=== PATIENT | female | born 1950 | race Caucasian/White ===

== ENCOUNTER 2023-05-31 19:16 | Outpatient (CLI) | payer MEDICARE, OTHER | END 2023-05-31 19:17 | disposition critical access hospital (66) | LOC: EMS 19:16 | DX: R07.89 Other chest pain (principal); R20.2 Paresthesia of skin; R06.02 Shortness of breath; R11.0 Nausea | CPT/HCPCS: A0425; A0429 ==

== ENCOUNTER 2023-05-31 19:47 | Emergency (ER) | payer MEDICARE, OTHER ==
--- NOTE | 2023-05-31 20:07 | ED Physician Documentation ---
PD HPI CHEST PAIN - Stated complaint Stated Complaint: CHEST PX/SOA - Chief complaint Chief Complaint: Cardiac - History obtained from History obtained from: Patient - Additional information Additional information: BIBA. HPI from patient. At approximately 6:30 PM ofelia, while patient was driving her car, she experienced sudden onset of left anterior chest discomfort. She describes a sensation as "felt like my heart stopped" (per patient), with the next beat she felt as particularly strong; she did not have subsequent palpitations or skipped-beat/pause sensations. Over the ensuing 30 to 60 seconds, she had nausea and dyspnea. 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 She became increasingly concerned of the potential seriousness of the cause of her symptoms to the point of pulling over and calling 911. Denies h/o similar symptoms. No known cardiac medical history. Has never had a stress test. By the time of this H+P, she is asymptomatic. She notes that she had a typical day today including exercise (swimming) without any symptoms or difficulty. Review of Systems Constitutional: reports: Reviewed and negative Cardiac: reports: Other (not chest pain nor palpitations per se). denies: Pedal edema, Calf pain Respiratory: reports: Dyspnea (resolved) GI: reports: Nausea. denies: Abdominal Pain, Vomiting PD PAST MEDICAL HISTORY - Past Medical History Past Medical History: No - Past Surgical History Past Surgical History: Yes General: Appendectomy Ortho: Hip replacement /[employer]: Mastectomy - Present Medications Home Medications: Ambulatory Orders Medication Instructions Recorded Confirmed No Known Home Medications 05/31/23 05/31/23 - Allergies Allergies/Adverse Reactions: Allergies Allergy/AdvReac Type Severity Reaction Status Date / Time clindamycin Allergy Unknown Verified 05/31/23 20:00 - Social History Does the pt smoke?: No Smoking Status: Never smoker PD ED PE NORMAL - Vitals Vital signs reviewed: Yes - General General: Alert and oriented X 3, No acute distress, Well developed/nourished - Cardiac Cardiac: RRR - Respiratory Respiratory: No respiratory distress, Clear bilaterally - Abdomen Abdomen: Soft, Non tender - Extremities Extremities: No edema PD ED PE EXPANDED - Cardiac Cardiac: Murmur Present (1/6 SOCO very focal to right 2nd ICS immediately adjacent to right sternal border) Results - Vitals Vitals: Oxygen O2 Source Room air - EKG (time done) No standard instances EKG releavant findings:: EKG personally interpreted by author of this note. Relevant findings are: Rate: Rate (enter#) (69) Rhythm: NSR [place]: Normal Intervals: Normal [place] QRS: LVH Ischemia: Normal ST segments Other comments: Other comments (RSR' V2) - Labs Labs: Laboratory Tests 05/31/23 05/31/23 20:12 20:12 WBC 7.5 RBC 4.25 Hgb 12.9 Hct 38.4 MCV 90.4 MCH 30.4 MCHC 33.6 RDW 13.5 Plt Count 226 MPV 10.1 Neut # (Auto) 3.4 Lymph # (Auto) 2.9 Woods # (Auto) 0.7 Eos # (Auto) 0.3 Baso # (Auto) 0.1 Absolute Nucleated RBC 0.00 Nucleated RBC % 0.0 Sodium 136 Potassium 3.7 Chloride 103 Carbon Dioxide 28 Anion Gap 5.0 L BUN 15 Creatinine 0.7 Estimated GFR (MDRD) 82 L Glucose 119 H Calcium 9.9 Total Bilirubin 0.5 AST 18 ALT 17 Alkaline Phosphatase 88 Troponin I High Sens 6.2 Total Protein 6.2 L Albumin 4.1 Globulin 2.1 Albumin/Globulin Ratio 2.0 Lipase 24 - Rads (name of study) chest xray Relevant Findings:: Prelim report reviewed, See rad report PD Medical Decision Making - ED course Complexity details: reviewed results, re-evaluated patient, considered differential, d/w patient ED course: No concerning nor diagnostic findings on tonight's tests, including blood tests (including hs-cTn), EKG, and CXR. She remained asymptomatic during ED stay. On reevaluation, results d/w patient. Etiology of her symptoms is not apparent at this time. Return precautions discussed, advised to seek follow up with PCP , armand xt available appointment. We also discussed my finding of subtle hear murmur on exam; she says she has never been told of a heart murmur before. Might benefit from outpatient echo if heart murmur is detected on follow-up exam. Departure - Departure Disposition: 01 Home, Self Care Clinical Impression: Chest pain Qualifiers: Chest pain type: unspecified Qualified Code(s): R07.9 - Chest pain, unspecified Condition: Good Instructions: ED Chest Pain Atypical Unkn Cause Follow-Up: Viridiana Looney MD [Primary Care Provider] - Comments: There were no concerning nor diagnostic findings on tonight's tests, including the blood work, chest x-ray, and EKG. The cause of your symptoms is not apparent at this time. As we discussed, you were having occasional PVCs (premature ventricular contractions) on the monitor while you were in the emergency department, but, notably, you indicated to me that you were not having any symptoms from these PVCs. Contact your primary care provider's office when they next open to arrange for next available appointment for reevaluation. Forms: PCP List Discharge Date/Time: 05/31/23 22:16
--- NOTE | 2023-05-31 20:18 | XRAY Report ---
PROCEDURE: Chest 1 View X-Ray INDICATIONS: Chest Pain TECHNIQUE: One view of the chest was acquired. COMPARISON: None. FINDINGS: Surgical changes and devices: Left axillary clips are seen. At least one apparent right axillary cli ps can also be seen. Lungs and pleura: No pleural effusions or pneumothorax. Lungs are clear. Mediastinum: The aorta is prominent and tortuous. The cardiac contours are within normal limits. Bones and chest wall: No suspicious bony lesions. Age-appropriate degenerative changes are seen. O verlying soft tissues appear unremarkable. IMPRESSION: No acute cardiopulmonary process. Postoperative and degenerative changes are seen. Reviewed by: Herb Fields MD on 05/31/2023 7:17 PM KARINA Approved by: Herb Fields MD on 05/31/2023 7:17 PM KARINA Station ID: [id number]
[2023-05-31 20:21] LABS: BASOPHILS # (AUTO) 0.1 10^3/uL (0.0-0.1); BASOPHILS % (AUTO) 1.5 %; EOSINOPHILS # (AUTO) 0.3 10^3/uL (0.0-0.7); EOSINOPHILS % (AUTO) 4.5 %; HCT - HEMATOCRIT 38.4 % (37.0-47.0); HGB - HEMOGLOBIN 12.9 g/dL (12.0-16.0); LYMPHOCYTES # (AUTO) 2.9 10^3/uL (1.5-3.5); LYMPHOCYTES % (AUTO) 38.8 %; MEAN CORPUSCULAR HEMOGLOBIN 30.4 pg (27.0-31.0); MEAN CORPUSCULAR HGB CONC 33.6 g/dL (32.0-36.0); MEAN CORPUSCULAR VOLUME 90.4 fL (81.0-99.0); MEAN PLATELET VOLUME 10.1 fL (7.9-10.8); MONOCYTES # (AUTO) 0.7 10^3/uL (0.0-1.0); MONOCYTES % (AUTO) 9.9 %; NEUTROPHILS # (AUTO) 3.4 10^3/uL (1.5-6.6); NEUTROPHILS % (AUTO) 45.2 %; PLT - PLATELET COUNT 226 10^3/uL (130-450); RED BLOOD COUNT 4.25 10^6/uL (4.20-5.40); RED CELL DISTRIBUTION WIDTH 13.5 % (12.0-15.0); WHITE BLOOD COUNT 7.5 x10^3/uL (4.8-10.8)
[2023-05-31 20:43] LABS: TROPONIN I HIGH SENSITIVITY 6.2 ng/L (2.3-14.8)
[2023-05-31 21:25] LABS: ALBUMIN 4.1 g/dL (3.2-5.5); BILIRUBIN,TOTAL 0.5 mg/dL (0.2-1.0); CALCIUM 9.9 mg/dL (8.5-10.3); CREATININE 0.7 mg/dL (0.6-1.3); POTASSIUM 3.7 mmol/L (3.5-4.5); TOTAL PROTEIN 6.2 g/dL (6.4-8.9)
[2023-05-31 22:23] VITALS: BP 128/69; O2SAT 97
== END 2023-05-31 22:16 | disposition home or self-care (01) ==
LOC: EDUNIT# → ED 19:47
DX: R07.9 Chest pain, unspecified (principal)
CPT/HCPCS: 36415; 80053; 83690; 84484; 85025; 93005; 99283; 99284